=== PATIENT | female | born 1990 | race African-American/Black ===

== ENCOUNTER 2017-07-07 07:22 | Emergency (ER) | payer MEDICAID, SELFPAY | END 2017-07-07 08:18 | disposition home or self-care (01) | LOC: ERS 07:22 | DX: K64.4 Residual hemorrhoidal skin tags (principal); F41.9 Anxiety disorder, unspecified; F17.210 Nicotine dependence, cigarettes, uncomplicated | CPT/HCPCS: 99282 ==

== ENCOUNTER 2018-02-22 16:23 | Outpatient (CLI) | payer OTHER ==
--- NOTE | 2018-02-22 20:17 | ULT ---
HIGH RISK THIRD SEMESTER OB ULTRASOUND 02/22/18 Multiple longitudinal and transverse images of an intrauterine is obtained using a multiher tz curvilinear transducer. Real time, color flow, and M-mode sonography is used to evaluate the fetus . Images demonstrate a viable intrauterine with a fetus in cephalic presentation. The placent a is posterior. anatomic survey is limited. This is due to advanced age. Intracranial structures, four ch alfredito heart, stomach, kidneys, bladder, and cord insertion are grossly unremarkable. Three vessel cor d is seen. Upper and lower extremities are partially visualized but what is seen is unremarkable. BIOMETRICS: Biparietal diameter equals 84 mm equals 33 weeks, 5 days. Head circumference equals 304 mm equals 33 weeks, 5 days. Abdominal circumference equals 260 mm equals 30 weeks, 1 day. Femur length equals 65 mm equals 33 weeks, 3 days. Composite age equals 32 weeks, 1 day with an estimated date of delivery of 04/18/18. Estimated f etal weight is 1846 grams plus/minus 273 grams. Amniotic fluid index measures 11.8 cm. IMPRESSION: Viable IUP. Estimated gestational age is 32 weeks 1 day with an estimated date of delivery of 04/18/18 . This is significantly different than the patient's estimated clinical gestational age of 38 weeks, 4 days with an estimated date of delivery of 03/04/18. POS: [facility]
== END 2018-02-22 16:24 | disposition home or self-care (01) ==
LOC: ULT 16:23
PROVIDERS: ATTEND Nurse Practitioner
DX: O09.93 Supervision of high risk pregnancy, unspecified, third trimester (principal); Z87.51 Personal history of pre-term labor; Z3A.32 32 weeks gestation of pregnancy
CPT/HCPCS: 76805

== ENCOUNTER 2018-02-24 19:44 | Day surgery (SDC) | payer OTHER ==
[2018-02-24 20:20] VITALS: BP 113/64; TEMP 98.7; BMI 27.3
--- NOTE | 2018-02-24 20:37 | PDOC.LDHP ---
Labor and Delivery H&P HPI: Patient has FULL H&P handwritten in CHART. PLEASE SEE THAT REPORT In brief: Chief complaint: possible contractions HPI: Patient without real established care. No records on file 27 yo with 2 stated EDCs (03/27 and 03/04) here for possible contractions. RGA either 35 or 38 weeks No LOF No VB Has a GC and Chl on file from Jun 2017 which was negative. Was 3cm at [facility] prior check Current gestational age (weeks): 39 (unclear (possible 35)) Dating criteria: last menstrual period Grav: 3 Para: 2 (HX 29 and 30 week delivery) Current complications: other (no PNC established.) Current medications: none Previous surgical history: none Allergies/Adverse Reactions: Allergies Allergy/AdvReac Type Severity Reaction Status Date / Time amoxicillin Allergy Severe Anaphylaxis Verified 02/24/18 20:10 Penicillins Allergy Severe Anaphylaxis Verified 02/24/18 20:10 Social history: none - Physical Exam Vital signs reviewed and normal: yes General: NAD Heart: RRR Lungs: CTAB Abdomen: gravid FHT: category 1 [place] contractions every: few, sparse - Assessment No care, no real EGA...either 35 or 38 weeks (poor criteria) - Plan Plan: observation in L&D (Order all OB labs to include GBS, GC/Chl, sickle. UTox for file No evidence true labor at this time get sono for record)
[2018-02-24 21:08] LABS: #Monocytes 0.3 thou/uL (0.11-0.59); #Neutrophils 6.1 thou/uL (1.40-6.50); %Basophils 0.1 % (0.0-1.0); %Eosinophils 0.5 % (0.0-10.0); %Lymphocytes 12.9 % (21.0-51.0); %Monocytes 4.4 % (0.0-10.0); %Neutrophils 82.2 % (42.0-75.0); Hemoglobin 10.9 g/dL (12.0-16.0); Mean Corpuscular Hemoglobin 29.3 pg (27.0-31.0); Mean Corpuscular Volume 86.1 fl (81.0-99.0); Mean Platelet Volume 7.8 fL (7.4-10.4); Platelet Count 165 thou/uL (130-400); RBC Distribution Width 13.1 % (11.5-14.5); Red Blood Cell (RBC) Count 3.71 mill/uL (4.20-5.40); White Blood Cell (WBC) Count 7.4 thou/uL (4.8-10.8)
--- NOTE | 2018-02-24 21:08 | PDOC.EVN ---
Event Note - Event Note Event Note: EDC by terry 2 days ago at in our system...USE EDC of 04/18. EGA 32 weeks 2 day now, with PCD. We will not order repeat sono at this time as done 2 days ago. BUT...she will get a dose of steroids now and retrurn tomorrow for second steroid.
[2018-02-24] MEDS ORDERED: Betamet Acet/Betamet Na Ph 30 MG/5 ML VIAL ONE (21:09)
[2018-02-24] MEDS ORDERED: Betamet Acet/Betamet Na Ph 30 MG/5 ML VIAL IM SCH (21:15)
[2018-02-24 21:45] LABS: Amphetamine Not Detected (NotDetected); Barbiturates Screen Not Detected (NotDetected); Benzodiazepine Screen Not Detected (NotDetected); Cocaine Metabolite Screen Not Detected (NotDetected); Medtox Control Line Valid? VALID (VALID); Medtox Reader # READER 1; Methadone Not Detected (NotDetected); Methamphetamine Not Detected (NotDetected); Opiate Screen Not Detected (NotDetected); Oxycodone Screen Not Detected (NotDetected); Phencyclidine (PCP) Not Detected (NotDetected); THC/Cannabinoid Screen Not Detected (NotDetected); Tricyclic Screen Not Detected (NotDetected)
[2018-02-24 21:58] LABS: Syphilis Antibody Nonreactive (Nonreactive); Syphilis Antibody Index 0.07 S/CO (<1.00 Non-Reactive)
[2018-02-24 22:53] LABS: HIV (1/2) Antibody/Antigen Non-Reactive (NonReactive); HIV 1/2 INDEX 0.08 S/CO (<1.00)
[2018-02-24 23:51] LABS: Hep B Surf AB Reactive (NonReactive)
[2018-02-24 23:52] LABS: HBSAB Concentration 105.79 mIU/mL
[2018-02-26 11:34] LABS: Chlamydia by PCR Not Detected (NotDetected); GC by PCR Not Detected (NotDetected)
== END 2018-02-24 21:29 | disposition home or self-care (01) ==
LOC: L&D/OP 19:44
PROVIDERS: ATTEND Obstetrics & Gynecology
DX: O99.89 Other specified diseases and conditions complicating pregnancy, childbirth and the puerperium (principal); R10.9 Unspecified abdominal pain; O09.33 Supervision of pregnancy with insufficient antenatal care, third trimester; Z88.0 Allergy status to penicillin; Z3A.32 32 weeks gestation of pregnancy
CPT/HCPCS: 59025; 80306; 85025; 85660; 86706; 86762; 86780; 87081; 87389; 87491; 87591; 96372; 99285; J0702

== ENCOUNTER 2018-02-25 20:25 | Day surgery (SDC) | payer OTHER | END 2018-02-25 20:31 | disposition home or self-care (01) | LOC: L&D/OP 20:25 | PROVIDERS: ATTEND Obstetrics & Gynecology | DX: O36.8990 Maternal care for other specified fetal problems, unspecified trimester, not applicable or unspecified (principal); Z88.0 Allergy status to penicillin | CPT/HCPCS: 96372; 99281 ==

== ENCOUNTER 2018-03-07 15:21 | Day surgery (SDC) | payer OTHER ==
[2018-03-07 16:14] VITALS: BMI 27.1
--- NOTE | 2018-03-07 23:57 | SS ---
DATE OF SERVICE: 03/07/2018 OB TRIAGE NOTE REGULAR PHYSICIAN: [facility], Dr. Nails. EVALUATING PHYSICIAN: Amaury Amado MD CHIEF COMPLAINT: Possible contractions at home. HISTORY OF PRESENT ILLNESS: Ms. Serra is a 27-year-old, black, G3, P1-1-0-2 with an estimated date of confinement by late ultrasound of 04/18/2018, who presents complaining of suspected contractions at home. She states that she saw Dr. Nails in the office today and told him that she thought she might be having contractions. Apparently, she was not checked in the office, but was told to present to labor and delivery if they persisted. She denies ruptured membranes or vaginal bleeding. Of note is the fact that the patient was here 2 weeks ago [address] saw Dr[address] Heller. She was 4 cm at that time and was given 2 doses of steroids. PAST OBSTETRICAL HISTORY: She has had 2 vaginal deliveries. Her first was one at term and the second one was at 30 weeks due to ruptured membranes. PAST MEDICAL HISTORY: None. CURRENT MEDICATIONS: vitamins and iron. PAST SURGICAL HISTORY: None. ALLERGIES: PENICILLIN, AMOXICILLIN, both of which she says makes her swell and makes it difficult for her to breathe. SOCIAL HISTORY: Denies tobacco or alcohol use. Apparently, she has smoked in the past. REVIEW OF SYSTEMS: She denies vaginal bleeding, ruptured membranes, nausea, vomiting, fever, or chills. PHYSICAL EXAMINATION: VITAL SIGNS: Blood pressure is 109/61. She is afebrile. ABDOMEN: Soft, nontender, and gravid with a fundal height of 34. PELVIC: She is 4 cm. She is posterior and she is in the neighborhood of 30%-40 % effaced. The vertex is at the -1 station. heart tones are stable. There is good hihy-ls-vnpv variability and spontaneous accelerations. No significant regular uterine contractions are seen. ASSESSMENT: 1. A 34-week intrauterine . 2. No evidence of labor. PLAN: The patient will be discharged home with labor precautions. She has been told to follow up with her regular appointments with Dr. Nails and to return here should she notice contractions, vaginal bleeding, or rupture of membranes. She voices understanding of her instructions and is sent home in good condition. CLARITA
== END 2018-03-07 16:45 | disposition home or self-care (01) ==
LOC: L&D/OP 15:21
PROVIDERS: ATTEND Family Medicine
DX: Z03.79 Encounter for other suspected maternal and fetal conditions ruled out (principal); Z88.0 Allergy status to penicillin
CPT/HCPCS: 99282

== ENCOUNTER 2018-03-29 23:53 | Inpatient (IN) | payer OTHER ==
[2018-03-30 00:21] VITALS: BMI 26.8
[2018-03-30] MEDS ORDERED: Promethazine HCl 25 MG/ML VIAL IM PRN ×3 (00:31→05:10)
[2018-03-30] MEDS ORDERED: Ondansetron HCl/PF 4 MG/2 ML Vial IVP PRN ×2 (00:31→02:04)
[2018-03-30] MEDS ORDERED: HYDROcodone/Acetaminophen 5/325 mg Tablet PO PRN ×2 (00:31)
[2018-03-30] MEDS ORDERED: Ibuprofen 800 MG TAB PO PRN (00:31)
[2018-03-30] MEDS ORDERED: Lidocaine 1% (PF) 30 ML VIAL SC PRN (00:31)
[2018-03-30] MEDS ORDERED: NS / Oxytocin 40 units/1000ml 1,000 ML IV PRN (00:31)
[2018-03-30] MEDS ORDERED: Butorphanol Tartrate 1 MG/ML VIAL SLOW IVP PRN (00:31)
--- NOTE | 2018-03-30 00:36 | PDOC.LDHP ---
Labor and Delivery H&P HPI: Patient of Dr Nails, who is not currently available. Patient is a 27 yo with 2 prior SVDs, last 2014 at 28 weeks. She presented late to [facility] this and we are using an EDC of 04/18/18- giving an EGA of 37 weeks 3 days. Here for CTX, no LOF, no VB. Sono in third trimester was done but unsure dating criteria. Review of Systems: as per HPI. Complete ROS performed. Current gestational age (weeks): 37 (3 days, unsure criteria) Due date: 04/18/18 Dating criteria: last menstrual period Grav: 3 Para: 2 OB History Details: last 2014 Current complications: other (late care. Unknown GBS.) Abnormal US findings: No Current medications: pre-ahsan vitamins Previous surgical history: none Allergies/Adverse Reactions: Allergies Allergy/AdvReac Type Severity Reaction Status Date / Time amoxicillin Allergy Severe Anaphylaxis Verified 03/07/18 16:07 Penicillins Allergy Severe Anaphylaxis Verified 03/07/18 16:07 Social history: none - Physical Exam Vital signs reviewed and normal: yes General: NAD Heart: RRR Lungs: CTAB Abdomen: gravid Extremeties: no edema FHT: category 1 [place] contractions every: every 3-5 min - Vaginal Exam cm dilated: 7 (BOWI) Effacement: 100% Station: 0 - Assessment L&D Assessment: term patient in labor - Plan Plan: admit to L&D, informed consent obtained, anesthesia consult for pain management, other (Unsure criteria, but active labor. Unknown GBS but we will use risk factor algoithm...no risk factors right now. Await delivery. Dr Nails not available. We will assume care.)
[2018-03-30] MEDS ORDERED: Penicillin G Potassium 5 MILL.UNITS VIAL ONE (00:41)
[2018-03-30] MEDS ORDERED: Sodium Chloride 0.9% 100 ML ONE (00:41)
--- NOTE | 2018-03-30 00:41 | PDOC.EVN ---
Event Note - Event Note Event Note: Per Dr Nails phone call: GBS positive-- will order PCN.
[2018-03-30] MEDS ORDERED: Lactated Ringer's 1,000 ML IV SCH (00:45)
--- NOTE | 2018-03-30 00:49 | PDOC.EVN ---
Event Note - Event Note Event Note: states GBS is CLINDA resistent...will order VANCO.
--- NOTE | 2018-03-30 00:57 | PDOC.LDPN ---
Labor & Delivery Progress Note - Subjective Subjective: painful contractions - Objective Vital signs reviewed and normal: yes General: NAD Uterine fundus: non tender SVE: by me Dilation: 9 Effacement: 100% Station: 0 FHT: category 1 [place] contractions every: every 3-5 minutes - Assessment (1) Active labor at term Code(s): [id number] - Current Visit: Yes Status: Acute Plan: continue plan of care, other (vanco ordered and discussed with her. Await delivery. BP 130s/80s)
[2018-03-30] MEDS ORDERED: Vancomycin HCl 1 GM in Premix Bag 1 BAG IVPB SCH (01:00)
[2018-03-30] MEDS ORDERED: DISCONTINUE ALL PREVIOUS NARCOTICS FS SCH (01:00)
[2018-03-30] MEDS ORDERED: Bupivacaine 0.75% 13.4 ML, fentaNYL Citrate/PF 400 MCG in Sodium Chloride 0.9% 78.6 ML EPIDURAL SCH (01:00)
[2018-03-30 01:06] LABS: Hemoglobin 11.1 g/dL (12.0-16.0); Mean Corpuscular HGB CONC 34.8 g/dL (32.0-36.0); Mean Corpuscular Hemoglobin 29.5 pg (27.0-31.0); Mean Corpuscular Volume 84.9 fL (78.0-98.0); Mean Platelet Volume 8.5 fL (7.4-10.4); Platelet Count 198 thou/uL (130-400); RBC Distribution Width 13.9 % (11.5-14.5); Red Blood Cell (RBC) Count 3.76 mill/uL (4.20-5.40)
[2018-03-30 01:39] LABS: Syphilis Antibody Nonreactive (Nonreactive); Syphilis Antibody Index 0.07 S/CO (<1.00 Non-Reactive)
[2018-03-30 01:40] LABS: HBSAg Index 0.19 S/CO (0-0.99); HIV (1/2) Antibody/Antigen Non-Reactive (NonReactive); HIV 1/2 INDEX 0.21 S/CO (<1.00); Hep B Surf Ag Non-Reactive S/CO (NonReactive)
[2018-03-30] MEDS ORDERED: diphenhydrAMINE 50 MG/ML VIAL IVP PRN (02:04)
[2018-03-30] MEDS ORDERED: Naloxone HCl 0.4 mg/ml Vial IVP PRN ×2 (02:04)
[2018-03-30] MEDS ORDERED: Lactated Ringer's 500 ML IV PRN (02:04)
[2018-03-30] MEDS ORDERED: Eucerin (Mineral Oil/Petrolatum,White) 30 gm Jar TOP PRN (02:04)
[2018-03-30] MEDS ORDERED: ePHEDrine/0.9% NaCl/PF SYRINGE 50 mg/10 ml SLOW IVP PRN (02:04)
[2018-03-30] MEDS ORDERED: Acetaminophen 325 MG TAB PO PRN (02:04)
[2018-03-30] MEDS ORDERED: Fentanyl 4mcg/Marcaine 0.1% Cassette 100 ML EPIDURAL SCH (02:15)
[2018-03-30] MEDS ORDERED: Communication Order-Pharmacy FS SCH (02:15)
--- NOTE | 2018-03-30 05:07 | PDOC.OPDEL ---
OB Operative/Delivery Note Delivery Dr/Surgeon: Arron Assist: None Pre-Delivery Diagnosis: active labor Procedure/Post Delivery Dx: spontaneous vaginal delivery Weeks gestation: 37 (poor criteria) Anesthesia: epidural - Findings A - 1 min: 9 - 5 min: 9 - Additional Findings/Plan Placenta delivered: spontaneous (Richards maneuver) Repaired Obstetrical Laceration: none Estimated blood loss: 200 Compilations/Other Findings: Female No Nuchal cord 3VC Counts correct Delivery at approx 0500, placenta spont delievered 1 min later intact. Post delivery plan: routine recovery
[2018-03-30] MEDS ORDERED: Varicella virus, LIVE 0.5 ML VIAL SC ONE (05:10)
[2018-03-30] MEDS ORDERED: Adacel (T-DAP) 0.5 ML VIAL IM ONE (05:10)
[2018-03-30] MEDS ORDERED: Milk Of Magnesia 30 ML UDCUP PO PRN (05:10)
[2018-03-30] MEDS ORDERED: Preparation H Ointment 28 GM TUBE PR PRN (05:10)
[2018-03-30] MEDS ORDERED: Benzocaine/Menthol 20-0.5% 60 ML CAN TOP PRN (05:10)
[2018-03-30] MEDS ORDERED: Acetaminophen/Codeine 30-300mg Tablet PO PRN (05:10)
[2018-03-30] MEDS ORDERED: Measles/Mumps/Rubella 10 MCG/0.5 ML VIAL SC ONE (05:10)
[2018-03-30] MEDS ORDERED: Bisacodyl 10 MG SUPP PR PRN (05:10)
[2018-03-30] MEDS ORDERED: diphenhydrAMINE 25 MG CAP PO PRN (05:10)
[2018-03-30] MEDS ORDERED: Lanolin Ointment 7 GM TUBE TOP PRN (05:10)
[2018-03-30] MEDS ORDERED: NS / Oxytocin 40 units/1000ml 1,000 ML IV SCH (05:15)
[2018-03-30] MEDS ORDERED: Clindamycin/D5W 900 MG in Premix Bag 1 BAG IVPB SCH (06:00)
[2018-03-30] MEDS ORDERED: Ondansetron ODT 8 MG TAB PO PRN (06:44)
[2018-03-30] MEDS: Ibuprofen 800 MG TAB PO SCH ×3 (06:49→22:11)
[2018-03-30] MEDS: Acetaminophen/Codeine 30-300mg Tablet PO PRN ×2 (08:07→22:11)
[2018-03-30] MEDS: Prenatal Vitamin 1 TAB PO SCH (08:10)
[2018-03-30] MEDS: Docusate Calcium (SURFAK) 240 MG CAP PO SCH ×2 (08:11→22:11)
[2018-03-30] MEDS: Ferrous Sulfate 325 MG TAB PO SCH ×2 (08:26→14:33)
[2018-03-30] MEDS ORDERED: Bupivacaine/Epinephrine 0.25% 30 ML VIAL ONE (11:11)
[2018-03-31] MEDS: Ibuprofen 800 MG TAB PO SCH ×3 (06:00→20:56)
[2018-03-31] MEDS: Acetaminophen/Codeine 30-300mg Tablet PO PRN ×2 (06:03→21:00)
[2018-03-31 06:25] LABS: Hemoglobin 10.2 g/dL (12.0-16.0); Mean Corpuscular HGB CONC 33.4 g/dL (32.0-36.0); Mean Corpuscular Hemoglobin 28.9 pg (27.0-31.0); Mean Corpuscular Volume 86.4 fL (78.0-98.0); Mean Platelet Volume 7.9 fL (7.4-10.4); Platelet Count 183 thou/uL (130-400); RBC Distribution Width 13.7 % (11.5-14.5); Red Blood Cell (RBC) Count 3.55 mill/uL (4.20-5.40); White Blood Cell (WBC) Count 9.3 thou/uL (4.8-10.8)
[2018-03-31] MEDS: Ferrous Sulfate 325 MG TAB PO SCH ×2 (09:08→20:24)
[2018-03-31] MEDS: Prenatal Vitamin 1 TAB PO SCH (09:09)
[2018-03-31] MEDS: Docusate Calcium (SURFAK) 240 MG CAP PO SCH ×2 (09:09→20:56)
--- NOTE | 2018-03-31 10:52 | PRG ---
DATE OF SERVICE: 03/31/2018 SUBJECTIVE: Ms. Serra is a 27-year-old female who is now day 1, status post a term spont aneous vaginal delivery yesterday morning. She was GBS positive. She has no complaints this morning , tolerating p.o., voiding on her own, having decreased lochia and good pain control. OBJECTIVE: VITAL SIGNS: Blood pressure is 118/80, temperature 98.0, pulse of 64, respiratory rate of 16. GENERAL: She appears to be in no acute distress. She is alert and oriented, cooperative and pleasan t to interact with. HEENT: Head is normocephalic, atraumatic. ABDOMEN: Fundus is firm. EXTREMITIES: Nontender, nonedematous. ASSESSMENT AND PLAN: The patient is a 27-year-old female day 1, status post an uncomplica sue term spontaneous vaginal delivery. She is GBS positive. Anticipate discharge of the baby tomorr ow, therefore mother will be discharged tomorrow.
[2018-04-01] MEDS: Ibuprofen 800 MG TAB PO SCH (06:11)
[2018-04-01] MEDS: Acetaminophen/Codeine 30-300mg Tablet PO PRN (06:11)
--- NOTE | 2018-04-01 06:14 | PDOC.PP ---
Post Progress Note Post Day #: PPD#2 Subjective: No complaints. Ready for home. PO intake tolerated: yes Ambulation: yes Vital Signs (12 hours) Temp Pulse Resp BP 03/31/18 19:45 97.9 F 61 18 119/78 Weight Weight 84.822 kg - Physical Examination General: NAD Respiratory: non-labored breathing Abdominal: no distention Psychiatric: normal affect Result Diagrams: 03/31/18 06:08 Additional Labs: Post Labs Blood Type B POSITIVE 03/30/18 00:32 Hep Bs Antigen Non-Reactive S/CO (NonReactive) 03/30/18 00:32 - Assessment/Plan DC home. Precautions reviewed. RTC with Dr. Nails in 6 weeks.
[2018-04-01 07:56] VITALS: BP 114/63; TEMP 97.8
[2018-04-01] MEDS: Docusate Calcium (SURFAK) 240 MG CAP PO SCH (09:09)
[2018-04-01] MEDS: Prenatal Vitamin 1 TAB PO SCH (09:09)
[2018-04-01] MEDS: Ferrous Sulfate 325 MG TAB PO SCH (09:19)
== END 2018-04-01 13:10 | disposition home or self-care (01) | DRG 775 ==
LOC: L&D/OP 23:53 → L&D 03-30 00:42 → 3SW 03-30 07:52
PROVIDERS: ADMIT Obstetrics & Gynecology; ATTEND Obstetrics & Gynecology
PROC: 10E0XZZ Delivery of Products of Conception, External Approach (ICD-10-PCS; principal; 2018-03-30)
DX: O99.824 Streptococcus B carrier state complicating childbirth (principal); Z3A.37 37 weeks gestation of pregnancy; Z37.0 Single live birth
CPT/HCPCS: 36415; 51702; 85027; 86762; 86780; 86850; 86900; 86901; 87340; 87389; 99285; J2001; J2540; J3010; J3370; J7050

== ENCOUNTER 2018-05-23 17:22 | Emergency (ER) | payer OTHER ==
[~2018-05-23 17:22] MED LIST: Iopamidol 370 76% 100 ML VIAL ONE
[2018-05-23] MEDS ORDERED: Lorazepam 2 MG/ML VIAL ONE (17:40)
[2018-05-23] MEDS ORDERED: Acetaminophen 500 MG TAB ONE (17:41)
[2018-05-23] MEDS ORDERED: diphenhydrAMINE 50 MG/ML VIAL ONE (17:41)
[2018-05-23] MEDS ORDERED: Metoclopramide HCl 10 MG/2 ML VIAL ONE (17:42)
--- NOTE | 2018-05-23 19:05 | CT ---
CT HEAD NONCONTRAST CTA [place] WITH CONTRAST WITH 3D VOLUME RENDERING 05/23/18 INDICATION: New onset right side headache. FINDINGS: Noncontrast head CT reveals normal sized ventricular system without acute intracranial hemorrhage, ma ss effect or midline shift. CTA imaging reveals patent [place], MCA and [employer] bilaterally. The bilateral te rminal carotid arteries reveal no evidence of occlusion. There is no discrete intracranial aneurysm e vident. The visualized distal vertebral arteries are patent. note is made that there is a generalized small caliber of the arterial system of the [place], although this is symmetric and does no t reveal associated mural based plaque or discernible inflammatory pathology. IMPRESSION: 1. No acute intracranial hemorrhage or mass effect. 2. No evidence of significant occlusion or aneurysm involving the [place]. POS: [facility]
== END 2018-05-23 20:45 | disposition left against medical advice (07) ==
LOC: ERS 17:22
DX: R51 Headache (principal); F41.9 Anxiety disorder, unspecified; F17.210 Nicotine dependence, cigarettes, uncomplicated
CPT/HCPCS: 70496; 96365; 96366; 96375; J1200; J2060; J2765

== ENCOUNTER 2021-10-07 08:55 | Emergency (ER) | payer OTHER | END 2021-10-07 10:22 | disposition left against medical advice (07) | LOC: ERS 08:55 | DX: Z53.21 Procedure and treatment not carried out due to patient leaving prior to being seen by health care provider (principal) ==

== ENCOUNTER 2021-11-30 09:09 | Emergency (ER) | payer OTHER ==
[2021-11-30] MEDS ORDERED: Ketorolac Tromethamine 30 MG/ML VIAL ONE (09:49)
== END 2021-11-30 09:58 | disposition home or self-care (01) ==
LOC: ERS 09:09
DX: M54.6 Pain in thoracic spine (principal)
CPT/HCPCS: 96372; 99283; J1885

== ENCOUNTER 2021-12-15 16:26 | Emergency (ER) | payer OTHER, SELFPAY ==
[~2021-12-15 16:26] MED LIST changes: -Iopamidol 370 76% 100 ML VIAL ONE; +Iopamidol-370 76% 500 ML 1 ML ONE
[2021-12-15] MEDS ORDERED: Ketorolac Tromethamine 30 MG/ML VIAL ONE (17:38)
[2021-12-15 17:54] LABS: BHCG - Serum Negative (NEGATIVE); Pregs Control Background? CLEAR/WHITE (CLR/WHITE); Pregs Control Bar Appear? YES (CONTROL BAR)
[2021-12-15] MEDS ORDERED: Xylocaine 1% w/ Epi 1:100K 10 ML VIAL ONE (18:51)
== END 2021-12-15 19:35 | disposition home or self-care (01) ==
LOC: ERS 16:26
DX: K03.81 Cracked tooth (principal); L72.3 Sebaceous cyst; F17.290 Nicotine dependence, other tobacco product, uncomplicated
CPT/HCPCS: 10160; 36415; 70491; 84703; 96374; J1885

== ENCOUNTER 2025-05-26 12:34 | Emergency (ER) | payer SELFPAY | END 2025-05-26 17:41 | LOC: ERS 12:34 | DX: Z53.21 Procedure and treatment not carried out due to patient leaving prior to being seen by health care provider (principal) ==